=== PATIENT | male | born 1970 | race Caucasian/White ===

== ENCOUNTER 2017-07-03 10:59 | Emergency (ER) | payer MEDICARE ==
--- NOTE | 2017-07-03 11:41 | ED Physician Documentation ---
Sore Throat/Dental Pain - HISTORIAN Historian: patient - HPI Stated Complaint: dental pain Chief Complaint: Dental Pain Additional Information: Patient states that he had a tooth cracked off last week. Has started to have some pain over the last 2 days and believes that he might have an infection. Has been alternating with tylenol and ibuprofen. Is currently living in [place]. Onset: other (last week) Further Comments: yes - ROS CONST: no problems - PAST HX Past History: none (bipolar disease and anxiety) Allergies/Adverse Reactions: Allergies Allergy/AdvReac Type Severity Reaction Status Date / Time codeine Allergy Verified 07/03/17 11:13 Penicillins Allergy Verified 07/03/17 11:13 tramadol HCl [From Ultram] Allergy Verified 07/03/17 11:13 Home Medications: Ambulatory Orders Medication Instructions Recorded Clindamycin HCl [Cleocin HCl] 300 mg PO QID #28 capsule 07/03/17 HYDROcodone /APAP 5/325 [[place] 1 each PO Q6 PRN #10 tablet 07/03/17 5/325] QUEtiapine FUMARATE [Seroquel] 07/03/17 clonazePAM [Klonopin] 07/03/17 - SOCIAL HX Smoking History: greater than 1 pack/day Alcohol Use: none Drug Use: none - FAMILY HX Family History: No - VITAL SIGNS Vital Signs: Vital Signs Temp Pulse Resp BP Pulse Ox 99.3 F 96 H 16 129/97 96 07/03/17 11:01 07/03/17 11:01 07/03/17 11:01 07/03/17 11:01 07/03/17 11:01 Dental Pain Physical Exam - EXAM General Appearance: alert, mild distress Head/Neck: head nml inspection Mouth/Throat: lips nml, pharynx nml. No: gums nml Ear/Nose: nml inspection, TM erythema Respiratory: no resp. distress, breath sounds nml, respiratory distress. No: wheezes, rales, rhonchi CVS: reg. rate & rhythm, heart sounds nml Extremities: non-tender Skin: warm/dry, normal color Neuro/Psych: other (normal) Discharge Clincal Impression: Dental caries Prescriptions: Clindamycin HCl [Cleocin HCl] 300 mg PO QID #28 capsule HYDROcodone /APAP 5/325 [[place] 5/325] 1 each PO Q6 PRN #10 tablet PRN Reason: Pain Referrals: Primary Doctor,No [Primary Care Provider] - 2 Days Additional Instructions: Patient is advised to get a dental appointment MATTHEW. Continue to take Ibuprofen 200mg 4 tablets three times a day with food. Take Hydrocodone as directed. If you are going to need further pain relief you will need to get established with primary care provider for further prescriptions. Condition: Stable Disposition: 01 HOME, SELF-CARE Decision to Admit: NO Date of Decison to Admit: 07/03/17 Decision Time: 11:47
[2017-07-03 12:18] VITALS: BP 126/98
== END 2017-07-03 12:11 | disposition home or self-care (01) ==
LOC: ED 10:59
DX: K02.9 Dental caries, unspecified (principal)
CPT/HCPCS: 99283

== ENCOUNTER 2017-07-15 13:36 | Emergency (ER) | payer MEDICARE ==
[2017-07-15 14:02] VITALS: BP 130/95
--- NOTE | 2017-07-15 14:17 | ED Physician Documentation ---
Sore Throat/Dental Pain - HISTORIAN Historian: patient, friend - HPI Stated Complaint: dental pain Chief Complaint: Dental Pain Additional Information: pt here for more narcotics for dental pain. he was seen 07-04-17 given10 norco 325 plus [id number] x 7 days-told nurse still has some of the clindamycin. pt has not seen dentist. when I declined more narcotics he bacame angry and he and lady left. other exam was not completed. - ROS CONST: other (no exam) - PAST HX Past History: none (no exam) Allergies/Adverse Reactions: Allergies Allergy/AdvReac Type Severity Reaction Status Date / Time codeine Allergy Verified 07/03/17 11:13 Penicillins Allergy Verified 07/03/17 11:13 tramadol HCl [From Ultram] Allergy Verified 07/03/17 11:13 Home Medications: Ambulatory Orders Medication Instructions Recorded Clindamycin HCl [Cleocin HCl] 300 mg PO QID #28 capsule 07/03/17 HYDROcodone /APAP 5/325 [[place] 1 each PO Q6 PRN #10 tablet 07/03/17 5/325] clonazePAM [Klonopin] 0.5 mg PO TID 07/03/17 Quetiapine Fumarate [Seroquel] 100 mg PO HS 07/15/17 - SOCIAL HX Smoking History: cigarettes Alcohol Use: occasionally Drug Use: marijuana (social hx per nursing history) - FAMILY HX Family History: No (no exam) - VITAL SIGNS Vital Signs: Vital Signs Temp Pulse Resp BP Pulse Ox 97.9 F 90 16 130/95 98 07/15/17 13:49 07/15/17 13:49 07/15/17 13:49 07/15/17 13:49 07/15/17 13:49 - REVIEWED ASSESSMENTS Nursing Assessment Reviewed: Yes Vitals Reviewed: Yes Dental Pain Physical Exam - EXAM General Appearance: other (pt alert active but he left prior to furthur exam) Neuro/Psych: No: other (pt alert coherent but angry when told him i could not refill narcotics-he must see dentist or pcp) Discharge Clincal Impression: dental pain, narcotic request for refill Referrals: Primary Doctor,No [Primary Care Provider] - 2 Days Comments: no furthur exam Decision to Admit: NO Decision Time: 14:19
== END 2017-07-15 14:08 ==
LOC: ED 13:36
DX: K08.89 Other specified disorders of teeth and supporting structures (principal)
CPT/HCPCS: 99283